=== PATIENT | female | born 1965 | race Caucasian/White ===

== ENCOUNTER → 2017-05-09 | Day surgery (SDC) | payer BC ==
[~2017-05-09] MED LIST: Lactated Ringers 1,000 ML IV SCH; Propofol 200 MG/20 ML SDV IV ONE
--- NOTE | 2017-05-09 18:21 | OR ---
DATE OF OPERATION: 05/09/2017 PREOPERATIVE DIAGNOSIS: SCREENING COLONOSCOPY. POSTOPERATIVE DIAGNOSIS: SCREENING COLONOSCOPY. SURGEON: Jeronimo Martinez MD PROCEDURE: FULL-LENGTH COLONOSCOPY WITH BIOPSIES X4. ANESTHESIA: LEATHER WHITENER, due to obstructive sleep apnea. COMPLICATIONS: None. SPECIMEN: Four colon biopsies, see dictation. FINDINGS: 1. Full-length colonoscopy. 2. Nonspecific colitis, distal transverse colon to proximal descending colon. RECOMMENDATIONS: Follow up in 2 weeks with Niurka Burr for biopsy reports. INDICATIONS: The patient apparently was sent for routine screening colonoscopy without any colon symptoms. DESCRIPTION OF PROCEDURE: The patient was prepped and draped, placed in left lateral decubitus position. A lubricated Olympus colonoscope was inserted and easily advanced to the cecum. Directly visualized the ileocecal valve and appendiceal orifice. The bowel prep was excellent. Upon withdrawal of the scope, the cecal pouch, ascending and transverse colon were benign up until the most distal portion of transverse colon in the splenic flexure area where the patient had some marked signs of colitis, extending from the distal transverse colon to the proximal descending colon. Four biopsies of the area were taken. This did not have an obvious ischemic look to it and it was not specific for any specific type of inflammatory disease. The rest of the distal descending and sigmoid colon were benign. There were no polyps, masses, ulcerations, or bleeding sites. No vascular abnormalities or further signs of colitis. No significant diverticula were seen. The rectal vault was unremarkable. Retroflexion of scope in the rectum showed no anal lesions. Air was suctioned. Scope was removed without complication. KLAUDIA/ANUPAMA /[id number]
== END ==
LOC: CC.SDS 10:11
PROVIDERS: ATTEND Family Medicine
DX: Z12.11 Encounter for screening for malignant neoplasm of colon (principal); K52.9 Noninfective gastroenteritis and colitis, unspecified; G47.33 Obstructive sleep apnea (adult) (pediatric); F41.9 Anxiety disorder, unspecified; F32.9 Major depressive disorder, single episode, unspecified; Z88.1 Allergy status to other antibiotic agents; Z88.2 Allergy status to sulfonamides; Z79.899 Other long term (current) drug therapy
CPT/HCPCS: 45380; J2704